=== PATIENT | female | born 1985 | race Caucasian/White ===

== ENCOUNTER 2018-12-25 12:39 | Emergency (ER) | payer MEDICAID ==
[~2018-12-25] VITALS: Ht 162.6 cm; Wt 102.1 kg
[2018-12-25 12:48] VITALS: BP 136/80
--- NOTE | 2018-12-25 13:00 | NUR ---
PT SENT TO LOBBY TO WAIT FOR AVAILABLE BED.
[2018-12-25 14:11] LABS: BASOPHILS # (AUTO) 0.1 K/uL (0.00-0.22); BASOPHILS % (AUTO) 1.3 % (0.0-2.0); EOSINOPHILS # (AUTO) 0.2 K/uL (0-0.4); EOSINOPHILS % (AUTO) 2.5 % (0.0-4.0); HEMATOCRIT 40.5 % (36-48); HEMOGLOBIN 13.7 g/dL (12.0-16.0); LYMPHOCYTES % (AUTO) 40.1 % (20.5-51.1); MEAN CORPUSCULAR HEMOGLOBIN 31 pg (27-31); MEAN CORPUSCULAR HGB CONC 34 g/dL (33-37); MEAN CORPUSCULAR VOLUME 92.3 fL (80-94); MONOCYTES # (AUTO) 0.7 K/uL (0.8-1.0); MONOCYTES % (AUTO) 9.3 % (1.7-9.3); NEUTROPHILS # (AUTO) 3.5 K/uL (1.8-7.7); NEUTROPHILS % (AUTO) 46.8 % (42.2-75.2); PLATELET COUNT (AUTO) 313 K/uL (140-450); RED BLOOD CELL COUNT(AUTO) 4.38 MIL/uL (4.20-5.40); RED CELL DISTRIBUTION WIDTH 13.2 % (11.6-13.7); WHITE BLOOD COUNT (AUTO) 7.5 K/uL (4.8-10.8)
[2018-12-25 14:24] LABS: ANION GAP 11.5 (8-16); CREATININE 0.8 mg/dL (0.6-1.3); POTASSIUM 4.5 mmol/L (3.5-5.1)
[2018-12-25 14:31] LABS: ALBUMIN 3.5 g/dL (3.4-5.0); TOTAL BILIRUBIN 0.2 mg/dL (0.0-1.0)
--- NOTE | 2018-12-25 15:39 | NUR ---
PT AMBULATED TO BED 3.
[2018-12-25] MEDS ORDERED: KETOROLAC 15 MG/ML VIAL IVP ONE (15:55)
--- NOTE | 2018-12-25 15:57 | NUR ---
PT BIB SELF TO THE ED WITH THE CHIEF C/O RIGHT UPPER BACK PAIN AND RIGHT SHOULDER PAIN FOR 2 WEEKS. PT STATES IT HURTS WHEN SHE COUGH. DENIES FALL. DENIES LIFTING HEAVY STUFF. +CIRCULATION, +SENSATION, MOVES ARM WITH PIN. PT HASN'T TAKEN ANY PAIN MEDS YET. DENIES MEDICAL HX. DENIES ANY OTHER PROBLEM AT THIS TIME. STATES PAIN OF 9/10 AT THIS TIME. EVALUATED BY ER .
[2018-12-25] MEDS ORDERED: KETOROLAC 30 MG/ML VIAL IM ONE (16:00)
[2018-12-25 17:33] VITALS: BP 125/55
--- NOTE | 2018-12-25 17:33 | NUR ---
Patient discharged with v/s stable. Written and verbal after care instructions given and explained. Patient alert, oriented and verbalized understanding of instructions. Ambulatory with steady gait. All questions addressed prior to discharge. ID band removed. Patient advised to follow up with PMD. Rx of IBUPROFEN AND METHOCARBAMOL given. Patient educated on indication of medication including possible reaction and side effects. Opportunity to ask questions provided and answered.
== END 2018-12-25 17:33 | disposition home or self-care (01) ==
LOC: MED 12:39
DX: M54.2 Cervicalgia (principal); M25.511 Pain in right shoulder; R07.9 Chest pain, unspecified; R20.0 Anesthesia of skin; E78.00 Pure hypercholesterolemia, unspecified
CPT/HCPCS: 36415; 71046; 80053; 81025; 85025; 93005; 96372; 99284; J1885